=== PATIENT | male | born 1980 | race Caucasian/White ===

== ENCOUNTER 2017-04-02 17:26 | Emergency (ER) | payer MEDICAID ==
[~2017-04-02] VITALS: Ht 180.3 cm; Wt 77.1 kg
[2017-04-02 17:45] VITALS: BP 146/82
[2017-04-02 18:25] LABS: Basophils # (auto) 0 uL; Basophils % (auto) 0.4 % (0.0-2.0); CONDITION Y; Eosinophils # (auto) 0.2 uL; Eosinophils % (auto) 2.6 % (0.0-7.0); Hematocrit 39.2 % (41.0-53.0); Hemoglobin 13.1 g/dL (13.5-17.5); Lymphocytes # (auto) 1.5 uL; Lymphocytes % (auto) 19.2 % (10.0-50.0); Mean Corpuscular Hemoglobin 30.1 pg (28.0-32.0); Mean Corpuscular Hgb Conc. 33.5 g/dL (32.0-36.0); Mean Corpuscular Volume 89.8 fL (80.0-100.0); Mean Platelet Volume 8.9 fL (7.4-10.4); Monocytes # (auto) 0.7 uL; Neutrophils # (auto) 5.2 uL; Neutrophils % (auto) 68.8 % (37.0-80.0); Platelet Count (auto) 222 10^3/uL (140-450); Red Cell Distribution Width 14.2 % (11.6-16.0); White Blood Cell 7.6 10^3/uL (4.4-10.8)
[2017-04-02 18:41] LABS: Albumin 3.6 g/dL (3.4-5.0); BUN/Creatinine Ratio 9.1; Bilirubin, Total 0.5 mg/dL (0.2-1.0); Calcium 8.7 mg/dL (8.5-10.1); Potassium 3.9 mmol/L (3.5-5.1); Total Protein 7.5 g/dL (6.4-8.2)
== END 2017-04-03 01:42 | disposition left against medical advice (07) ==
LOC: ER 17:32
DX: R56.9 Unspecified convulsions (principal); Z53.21 Procedure and treatment not carried out due to patient leaving prior to being seen by health care provider
CPT/HCPCS: 36415; 80053; 82542; 85025